=== PATIENT | female | born 2000 | race Two or more races ===

== ENCOUNTER 2023-06-04 10:29 | Emergency (ER) | payer MEDICAID, OTHER ==
[~2023-06-04] VITALS: Ht 170.2 cm; Wt 71.7 kg
[2023-06-04 11:16] LABS: Urine Bacteria FEW /hpf (None Seen); Urine Blood Negative /uL (Negative); Urine Clarity Clear (Clear); Urine Color Yellow (Yellow); Urine Mucus FEW (None Seen); Urine Protein, UAD TRACE (Negative); Urine Specific Gravity 1.031 (1.001-1.035); Urine Urobilinogen Normal (Negative); Urine WBC 3 /hpf (0 - 5); Urine pH 5.5 (5.0-8.0)
[2023-06-04 12:02] VITALS: BP 106/68; PULSE 79; RESP 18; TEMP 98.1; O2SAT 98
[2023-06-04] MEDS ORDERED: ACETAMINOPHEN 500 MG TAB PO ONE (12:45)
[2023-06-04] MEDS ORDERED: IBUP1TAB5 PO (13:39)
== END 2023-06-04 14:29 | disposition home or self-care (01) ==
LOC: ER 10:29
DX: S06.0X0A Concussion without loss of consciousness, initial encounter (principal); W22.8XXA Striking against or struck by other objects, initial encounter; Y93.89 Activity, other specified; Y92.89 Other specified places as the place of occurrence of the external cause; Y99.8 Other external cause status
CPT/HCPCS: 70450; 81001; 81025